=== PATIENT | female | born 1985 | race Two or more races ===

== ENCOUNTER 2024-02-17 22:24 | Emergency (ER) | payer OTHER ==
[~2024-02-17] VITALS: Ht 152.4 cm; Wt 58.0 kg
[2024-02-17 22:55] LABS: Basophils # (auto) 0 10 ^3/uL (0-0.2); Basophils % (auto) 0.5 % (0.0-2.0); Eosinophils # (auto) 0.1 10 ^3/uL (0-0.8); Lymphocytes # (auto) 2.2 10 ^3/uL (0.4-5.4); Mean Corpuscular Hgb Conc. 34.7 g/dL (32.0-36.0); Monocytes # (auto) 0.4 10 ^3/uL (0-1.3)
[2024-02-17 22:56] LABS: Hematocrit 40.8 % (36.0-46.0); Hemoglobin 14.2 g/dL (12.2-16.2); Lymphocytes % (auto) 35.9 % (10.0-50.0); Mean Corpuscular Hemoglobin 34.2 pg (28.0-32.0); Mean Corpuscular Volume 98.4 fL (80.0-100.0); Monocytes % (auto) 6.9 % (0.0-12.0); Neutrophils # (auto) 3.4 10 ^3/uL (1.6-8.6); Neutrophils % (auto) 55.7 % (37.0-80.0); Nucleated Red Blood Cells % 0.1 %; Red Blood Cells 4.15 10^6/uL (4.0-5.20); Red Cell Distribution Width 12.5 % (11.8-14.3); White Blood Cell 6.1 10^3/uL (4.4-10.8)
[2024-02-17 23:11] LABS: Alanine Aminotransferase 16 U/L (7-40); Albumin 4.7 g/dL (3.2-4.8); Alkaline Phosphatase 79 U/L (46-116); Anion Gap 4 (5-15); Aspartate Aminotransferase 15 U/L (13-40); Calcium 9.9 mg/dL (8.7-10.4); Carbon Dioxide 26 mmol/L (20-30); Chloride 106 mmol/L (98-107); Glucose 113 mg/dL (74-106); Potassium 3.7 mmol/L (3.5-5.1); Sodium 136 mmol/L (136-145)
[2024-02-17 23:12] LABS: Bilirubin, Total 0.6 mg/dL (0.2-1.0); Total Protein 7.5 g/dL (5.7-8.2)
[2024-02-17 23:16] VITALS: TEMP 98.4
[2024-02-17 23:23] LABS: BUN/Creatinine Ratio 9.4 (10.0-20.0); Blood Urea Nitrogen 8 mg/dL (9-23)
[2024-02-17] MEDS ORDERED: SODIUM CHL 0.9% IV ONE (23:45)
[2024-02-17] MEDS ORDERED: METHYLPREDNISOLONE SOD SUCC IV ONE (23:45)
[2024-02-18] MEDS: methylPREDNISolone SOD SUCC 125 MG/2 ML VL IV ONE ×2 (00:01→00:18)
[2024-02-18] MEDS: methylPREDNISolone SOD SUCC 125 MG/2 ML VL ONE (00:02)
[2024-02-18] MEDS: diphenhdrAMINE HCL 50 MG/1 ML VL IV ONE (00:03)
[2024-02-18] MEDS: IOHEXOL 350 MG/ML 100ML IJ ONE (00:19)
[2024-02-18] MEDS: SODIUM CHLORIDE 0.9% 1,000 ML IV ONE (00:49)
[2024-02-18 01:00] VITALS: BP 111/64; PULSE 81; RESP 16; O2SAT 96
[2024-02-18 01:30] LABS: Urine Bacteria None Seen /hpf (None Seen)
[2024-02-18 01:43] LABS: Urine Blood Negative /uL (Negative); Urine Clarity Clear (Clear); Urine Color Light-Yellow (Yellow); Urine Mucus FEW (None Seen); Urine Protein, UAD Negative (Negative); Urine Urobilinogen Normal (Negative); Urine WBC <1 /hpf (0 - 5); Urine pH 7.5 (5.0-9.0)
[2024-02-18 01:44] LABS: Urine Specific Gravity > 1.050 (1.001-1.035)
== END 2024-02-18 02:23 | disposition home or self-care (01) ==
LOC: ER 22:24
DX: G43.809 Other migraine, not intractable, without status migrainosus (principal); R20.2 Paresthesia of skin; J45.909 Unspecified asthma, uncomplicated; Z87.442 Personal history of urinary calculi; Z91.013 Allergy to seafood
CPT/HCPCS: 36415; 70450; 70496; 80053; 81001; 85025; 96361; 96374; 96375; 99285; J1200; J2919; J2930; J7030; J7050; Q9967